=== PATIENT | male | born 1975 | race Caucasian/White ===

== ENCOUNTER 2018-04-18 09:12 | Observation (INO) ==
--- NOTE | 2018-04-18 09:31 | Emergency Department Note ---
Disposition Clinical Impression: Chest pain Qualifiers: Chest pain type: unspecified Qualified Code(s): R07.9 - Chest pain, unspecified Disposition: Admitted As Inpatient Condition: Undetermined Referrals: Letha Thorne CNP [Primary Care Provider] - Forms: ED Satisfaction Letter Time of Disposition: 11:21 Chest Pain HPI - General Chief Complaint: ED Chest Pain Stated Complaint: chest pain Time Seen by Provider: 04/18/18 09:14 Source: patient Mode of arrival: ambulatory Limitations: no limitations Vital Signs Reviewed: Yes Nursing Notes Reviewed: Yes - History of Present Illness HPI Narrative: 43-year-old male with history of hypertension, hyperlipidemia, arrives to the emergency department with left-sided chest discomfort. The patient's significant other states that over the past few days the patient is having a large amount of shortness of breath and diaphoresis upon ambulation which is new for him. The patient is complaining of left-sided chest comfort that also occurs with this ambulation. Patient was noted this morning to begin experiencing some left-sided chest discomfort with again associated shortness of breath. No nausea but the patient does look mildly diaphoretic on examination in the room. The patient is also anxious. The patient denies any hemoptysis, unilateral leg swelling, recent surgeries or immobilizations, history DVT or PE. The patient has no signs of tachycardia on examination. He patient does have a history of a stress test without any cardiac catheter. The patient's stress test was "years ago". He denies any other complaints at this time. Severity scale (1-10): 5 - Related Data Home Medications Medication Instructions Recorded Confirmed Losartan Potassium [Cozaar] 100 mg PO QPM 07/02/16 10/01/16 Lovastatin [Mevacor] 20 mg PO QPM 07/02/16 10/01/16 Previous Rx's Medication Instructions Recorded Clindamycin [Cleocin] 150 mg PO Q6HR #20 capsule 10/01/16 Allergies Allergy/AdvReac Type Severity Reaction Status Date / Time acetaminophen [From Vicodin] Allergy Hallucinati Verified 09/13/17 22:59 ng hydrocodone [From Vicodin] Allergy Hallucinati Verified 09/13/17 22:59 ng All systems ED: reviewed and negative except as stated. Constitutional: Denies: fever, chills, weakness ENT ED: Denies: dysphagia Cardiovascular: Reports: chest pain Respiratory: Reports: dyspnea. Denies: cough, sputum production Gastrointestinal: Reports: nausea. Denies: abdominal pain, vomiting, diarrhea Genitourinary: Denies: urgency, dysuria Musculoskeletal: Denies: back pain, neck pain Integumentary: Denies: rash Neurological: Reports: headache. Denies: weakness, numbness, paresthesias, confusion Chest Pain PMH - Past Medical History Medical history: Reports: hyperlipidemia, hypertension, other Surgical history: Reports: cholecystectomy, herniorrhaphy, orthopedic, other Psychiatric history: Reports: no psych history - Social History Smoking Status: Never smoker Alcohol use: Reports: none Drug use: Reports: none Physical Exam - General Limitations: no limitations General appearance: alert, in no apparent distress, anxious - Head Head exam: atraumatic, normocephalic, normal inspection - Eye Eye exam: Present: normal appearance, PERRL, EOMI - ENT ENT exam: normal exam, normal oropharynx, mucous membranes moist - Neck Neck exam: Present: normal inspection, full ROM, trachea midline - Chest Chest inspection: Present: normal inspection, symmetric chest wall rise - Respiratory Respiratory exam: Present: normal lung sounds bilaterally - Cardiovascular Cardiovascular exam: Present: regular rate, normal rhythm, normal heart sounds - Abdominal Exam Abdominal exam: Present: soft, Non-Tender. Absent: tenderness, distention, guarding, rebound, rigidity - Extremities Exam Extremities exam: Present: normal inspection, full ROM. Absent: tenderness, pedal edema - Neurological Exam Neurological exam: Present: alert, oriented X3 - Skin Skin exam: Present: warm, dry, intact, normal color Course Vital Signs Temperature 98.2 F 04/18/18 09:16 Pulse Rate 75 04/18/18 09:16 Respiratory Rate 15 04/18/18 09:16 Blood Pressure 173/103 04/18/18 09:16 O2 Sat by Pulse Oximetry 98 04/18/18 09:16 Temperature 98.2 F 04/18/18 09:20 Pulse Rate 82 04/18/18 09:41 Respiratory Rate 12 04/18/18 09:41 Blood Pressure 151/106 04/18/18 09:41 O2 Sat by Pulse Oximetry 97 04/18/18 09:41 Oxygen Delivery Oxygen Delivery Room Air Chest Pain - MDM Narrative Medical decision making narrative: Patient's workup in the emergency department and streets no acute process. The patient's troponin, EKG, chest x-ray and lab work otherwise unremarkable. Given the patient's risk factors and concerning findings for chest pain, we will admit the patient to the hospital for further workup and care. The patient was made aware and agrees to plan. No further questions or concerns are noted at this time. The patient was administered aspirin and nitroglycerin. He is currently chest pain-free. The patient agrees to plan of care. We will get the patient to the hospital this time, accepted by Dr. Rose. - Lab Data Lab results reviewed: Yes I reviewed the patient's lab results. Result diagrams: 04/18/18 10:11 04/18/18 10:11 Lab Results 04/18/18 04/18/18 Range/Units 10:11 10:11 WBC 7.8 (4.3-11.1) K/mcL RBC 5.68 H (4.19-5.50) M/mcL Hgb 15.5 (12.9-16.9) g/dL Hct 45.6 (37.5-50.1) % MCV 80.3 L (83.0-100.0) fL MCH 27.3 L (28.0-33.3) pg MCHC 34.0 (31.6-35.5) g/dL RDW 13.5 (11.5-14.5) % Plt Count 364 (140-400) K/mcL MPV 9.0 L (9.4-12.4) fL Immature Gran % 0.3 (0-4) % Seg Neutrophils % 63.2 % Lymphocytes % 26.4 % Monocytes % 6.5 % Eosinophils % 2.8 % Basophils % 0.8 % Neutrophils # 4.9 (1.6-8.9) K/mcL Lymphocytes # 2.1 (0.6-4.6) K/mcL Monocytes # 0.5 (0.0-1.3) K/mcL Eosinophils # 0.2 (0.0-0.6) K/mcL Basophils # 0.1 (0.0-0.2) K/mcL Immature Plt Fraction 1.7 (1.1-6.1) % Sodium 135 L (136-145) mEq/L Potassium 4.1 (3.5-5.1) mEq/L Chloride 106 (98-107) mEq/L Carbon Dioxide 21 L (23-29) mEq/L BUN 9 (6-20) mg/dL Creatinine 0.96 (0.70-1.30) mg/dL Est GFR ( Amer) > 60 (> 60) Est GFR (Non-Af Amer) > 60 (> 60) BUN/Creatinine Ratio 9 (6-26) Glucose 129 H (70-105) mg/dL Calculated Osmolality 280 (280-300) Calcium 9.4 (8.6-10.3) mg/dL Troponin I < 0.03 (< 0.04) ng/mL - Radiology Data Radiology results reviewed: Yes I reviewed the patient's radiology results. Chest X-Ray 04/18/18 09:18 IMPRESSION: No acute cardiopulmonary process identified. D/ / Topher Cadet MD / Topher Cadet MD Interpreting Provider: Topher Cadet MD - EKG Data EKG attestation: Yes I reviewed and interpreted this EKG. EKG results narrative: Heart rate [address] elevation or ST depression noted. Nonspecific changes noted from EKG on 06/22/2017.
[2018-04-18] MEDS ORDERED: Nitroglycerin 0.4 MG TAB.SUBL SL PRN (09:34)
[2018-04-18] MEDS ORDERED: Aspirin 325 MG TABLET PO ONE (09:34)
[2018-04-18 10:35] LABS: Basophils # 0.1 K/mcL (0.0-0.2); Basophils % 0.8 %; Eosinophils # 0.2 K/mcL (0.0-0.6); Eosinophils % 2.8 %; Hematocrit 45.6 % (37.5-50.1); Hemoglobin 15.5 g/dL (12.9-16.9); Immature Granulocytes % 0.3 % (0-4); Immature Platelets 1.7 % (1.1-6.1); Lymphocytes # 2.1 K/mcL (0.6-4.6); Lymphocytes % 26.4 %; Mean Corpuscular Hemoglobin 27.3 pg (28.0-33.3); Mean Corpuscular Volume 80.3 fL (83.0-100.0); Monocytes # 0.5 K/mcL (0.0-1.3); Monocytes % 6.5 %; Neutrophils # 4.9 K/mcL (1.6-8.9); Platelet Count 364 K/mcL (140-400); Red Blood Count 5.68 M/mcL (4.19-5.50); Red Cell Distribution Width 13.5 % (11.5-14.5); Segmented Neutrophils % 63.2 %
[2018-04-18 10:54] LABS: Troponin I < 0.03 ng/mL (< 0.04)
[2018-04-18 11:08] LABS: BUN/Creatinine Ratio 9 (6-26); Blood Urea Nitrogen 9 mg/dL (6-20); Calcium 9.4 mg/dL (8.6-10.3); Carbon Dioxide 21 mEq/L (23-29); Chloride 106 mEq/L (98-107); Glucose 129 mg/dL (70-105); Osmolality,Calculated 280 (280-300); Potassium 4.1 mEq/L (3.5-5.1); Sodium 135 mEq/L (136-145); eGFR For Non-African Americans > 60 (> 60)
[2018-04-18] MEDS ORDERED: Adenosine 90 MG/30 ML MLS IV ONE (11:28)
--- NOTE | 2018-04-18 11:30 | Emergency Department Note ---
Disposition Clinical Impression: Chest pain Qualifiers: Chest pain type: unspecified Qualified Code(s): R07.9 - Chest pain, unspecified Disposition: Admitted As Inpatient Condition: Undetermined General Adult HPI - General Chief complaint: ED Chest Pain Stated complaint: chest pain Time Seen by Provider: 04/18/18 09:14 Source: patient Mode of arrival: ambulatory Limitations: no limitations - History of Present Illness Pain Scale: 5 - Related Data Home Medications Medication Instructions Recorded Confirmed Losartan Potassium [Cozaar] 100 mg PO QPM 07/02/16 10/01/16 Lovastatin [Mevacor] 20 mg PO QPM 07/02/16 10/01/16 Previous Rx's Medication Instructions Recorded Clindamycin [Cleocin] 150 mg PO Q6HR #20 capsule 10/01/16 Allergies Allergy/AdvReac Type Severity Reaction Status Date / Time acetaminophen [From Vicodin] Allergy Hallucinati Verified 09/13/17 22:59 ng hydrocodone [From Vicodin] Allergy Hallucinati Verified 09/13/17 22:59 ng Constitutional: Denies: fever, chills, weakness ENT ED: Denies: dysphagia Cardiovascular: Reports: chest pain Respiratory: Reports: dyspnea. Denies: cough, sputum production Gastrointestinal: Reports: nausea. Denies: abdominal pain, vomiting, diarrhea Genitourinary: Denies: urgency, dysuria Musculoskeletal: Denies: back pain, neck pain Integumentary: Denies: rash Neurological: Reports: headache. Denies: weakness, numbness, paresthesias, confusion Past Medical History - Past Medical History Medical history: Reports: hyperlipidemia, hypertension, other Surgical history: Reports: cholecystectomy, herniorrhaphy, orthopedic, other Psychiatric history: Reports: no psych history - Social History Smoking Status: Never smoker Smokeless Tobacco Status: No Alcohol use: Reports: none Drug use: Reports: none Physical Exam - General Limitations: no limitations General appearance: alert, in no apparent distress, anxious Course Vital Signs Temperature 98.2 F 04/18/18 09:16 Pulse Rate 75 04/18/18 09:16 Respiratory Rate 15 04/18/18 09:16 Blood Pressure 173/103 04/18/18 09:16 O2 Sat by Pulse Oximetry 98 04/18/18 09:16 Temperature 98.2 F 04/18/18 09:20 Pulse Rate 82 04/18/18 09:41 Respiratory Rate 12 04/18/18 09:41 Blood Pressure 151/106 04/18/18 09:41 O2 Sat by Pulse Oximetry 97 04/18/18 09:41 Oxygen Delivery Oxygen Delivery Room Air Medical Decision Making - Lab Data Result diagrams: 04/18/18 10:11 04/18/18 10:11 Lab Results 04/18/18 04/18/18 Range/Units 10:11 10:11 WBC 7.8 (4.3-11.1) K/mcL RBC 5.68 H (4.19-5.50) M/mcL Hgb 15.5 (12.9-16.9) g/dL Hct 45.6 (37.5-50.1) % MCV 80.3 L (83.0-100.0) fL MCH 27.3 L (28.0-33.3) pg MCHC 34.0 (31.6-35.5) g/dL RDW 13.5 (11.5-14.5) % Plt Count 364 (140-400) K/mcL MPV 9.0 L (9.4-12.4) fL Immature Gran % 0.3 (0-4) % Seg Neutrophils % 63.2 % Lymphocytes % 26.4 % Monocytes % 6.5 % Eosinophils % 2.8 % Basophils % 0.8 % Neutrophils # 4.9 (1.6-8.9) K/mcL Lymphocytes # 2.1 (0.6-4.6) K/mcL Monocytes # 0.5 (0.0-1.3) K/mcL Eosinophils # 0.2 (0.0-0.6) K/mcL Basophils # 0.1 (0.0-0.2) K/mcL Immature Plt Fraction 1.7 (1.1-6.1) % Sodium 135 L (136-145) mEq/L Potassium 4.1 (3.5-5.1) mEq/L Chloride 106 (98-107) mEq/L Carbon Dioxide 21 L (23-29) mEq/L BUN 9 (6-20) mg/dL Creatinine 0.96 (0.70-1.30) mg/dL Est GFR ( Amer) > 60 (> 60) Est GFR (Non-Af Amer) > 60 (> 60) BUN/Creatinine Ratio 9 (6-26) Glucose 129 H (70-105) mg/dL Calculated Osmolality 280 (280-300) Calcium 9.4 (8.6-10.3) mg/dL Troponin I < 0.03 (< 0.04) ng/mL Attestation Statement - Attestation Attestation: I examined this patient and my medical decision-making was reviewed with the Resident Physician. I agree with the documented findings, disposition and treatment plan as described except to the extent set forth below. 43 year old male who has a history of HTN as a teenager and was managed by beta blockers but recently taken off all of his medicatiions secondary to a GI bleed recently/ [place] states that he is having chest pain with exertional dyspnea and dipahoresis and states that he hunts and yestserday had to sit down twice and was extremely diaphoretic upon walking back to the house. The nitro has helped his pain. Meme has mutliple risk facotrs for aCS. negative troponin and non-ischemic EKG. But due to elevated heart score and clinical picture we will admit to medicine
[2018-04-18] MEDS ORDERED: Isovue-370 500 ML INFUS..BTL IV ONE (12:54)
[2018-04-18] MEDS ORDERED: Naloxone 0.4 MG/ML INJ IVP PRN (12:58)
[2018-04-18] MEDS ORDERED: Acetaminophen 325 MG TABLET PO PRN (12:58)
[2018-04-18] MEDS ORDERED: *HR* Heparin 5,000 UNIT/ML VIAL IVP PRN ×2 (13:03)
[2018-04-18] MEDS ORDERED: *HR* Heparin 5,000 UNIT/ML VIAL IVP ONE (13:03)
[2018-04-18] MEDS ORDERED: Pantoprazole 40 MG VIAL IVP ONE (13:23)
--- NOTE | 2018-04-18 13:24 | Internal Med History&Physical ---
<Eliel Delgadillo - Last Filed: 04/18/18 14:07> Date of Encounter: 04/18/18 Time of Encounter: 12:15 Internal Medicine - H&P: HPI Chief complaint: CP Admitted From: Emergency Dept Plans for Post Hospital Care: Home History of present illness: Mr. Bennett is a 43 year old male w?PMH of HTN, HLD, and essential tremor presents w/CC of CP, SOB, and diaphoresis for the past 24 hours. Pt. states that he had CP for the past week which worsened in severity yesterday. Describes as severe pressure under left breast w/radiation to left neck and back. Pt. states hes had intermittent CP w/episodes of tachycardia and bradycardia since his 20s w/no dx. Hx of GI bleed last year d/t chronic NSAID use from left shoulder pain following surgeries x4 and plates in his neck. Pts. medications stopped last fall and were never re-started. Denies N/V. Denies recent cardiac w/u. Patient denies recent illness, fever, chills, nausea, vomiting, changes in vision, headache, abdominal pain, cough, chest congestion, history of GERD, diarrhea, constipation, dizziness, lightheadedness, numbness, tingling, pre-syncope, or syncope. Past Med Surg Social Fam HX - Past Medical History Source: patient, old records reviewed, obtained from family Medical history: hyperlipidemia, hypertension, other (Essential tremor) Additional medical history: Essential Tremor Psychiatric history: no psych history - Past Surgical History Surgical History: cholecystectomy, herniorrhaphy, orthopedic, other (Left shoulder surgery x4, Neck plates) Additional surgical history: left shoulder surgery, left inguinal hernia repair as a child, recurrent left inguinal hernia repair, right inguinal hernia, bone graft from left hip - Social History Smoking Status: Never smoker Smokeless Tobacco Status: No Alcohol use: none Drug use: none Occupational status: employed Current living situation: Home, With Family Activity Level: Independent ambulation, Very active Recent Out of Country Travel Within the Last 8 Weeks: No Exposure or Possible Exposure to Illness During Travel: No - Family History Father Race: Family Member Ethnicity: Non- Living Status: Age at : 20 Cause of : Accident Mother History Unknown: Yes Race: Family Member Ethnicity: Non- Living Status: Still Living Brother History Unknown: Yes Race: Family Member Ethnicity: Non- Living Status: Still Living Internal Medicine - H&P: Meds Ibuprofen [Motrin] 200 mg PO DAILY PRN 04/18/18 [History] 3 Allergy/AdvReac Type Severity Reaction Status Date / Time acetaminophen [From Vicodin] Allergy Hallucinati Verified 04/18/18 11:41 ng hydrocodone [From Vicodin] Allergy Hallucinati Verified 04/18/18 11:41 ng All Systems PM: A 10-system review of systems was performed and is negative for pertinent findings except as documented above in the HPI. - Constitutional Constitutional: no chills, no fever(s), no night sweats - EENT Eyes: no change in vision, no discharge, no pain, no photophobia Ears: no ear discharge, no ear pain, no tinnitus Nose, mouth and throat: no dysphagia, no nasal discharge, no neck pain, no sore throat - Breasts Breasts: as per HPI - Cardiovascular Cardiovascular ROS IM: as per HPI, chest pain, diaphoresis, dyspnea, dyspnea on exertion, no lightheadedness, no palpitations, no syncope - Respiratory Respiratory: as per HPI, dyspnea, dyspnea on exertion, no cough, no wheezing, no excessive phlegm production - Gastrointestinal Gastrointestinal: no abdominal pain, no diarrhea, no hematemesis, no hematochezia, no melena, no nausea, no vomiting - Genitourinary Genitourinary ROS male: as per HPI - Musculoskeletal Musculoskeletal ROS IM: as per HPI, other (Chronic left shoulder pain from surgeries x4 and neck pain d/t plate placement), no numbness, no tingling - Integumentary Integumentary IM: no rash, no unusual bruising - Neurological Neurological ROS: no confusion, no convulsions, no focal weakness, no numbness, no tingling, no tremor(s) - Psychiatric Psychiatric: as per HPI - Endocrine Endocrine IM: as per HPI - Hematologic/Lymphatic Hematologic/Lymphatic: no easy bruising - Allergic/Immunologic Allergic/Immunologic: as per HPI - Constitutional Vitals: Temp Pulse Resp BP Pulse Ox 97.5 F L 77 19 153/104 98 04/18/18 12:47 04/18/18 12:47 04/18/18 12:47 04/18/18 12:47 04/18/18 12:47 General appearance: Present: cooperative, A&O X 3, pleasant, obese, severe distress (CP, SOB), answers questions appropriately Exam: Pt. examined at bedside. Pt. SOB, diaphoretic, and reports ongoing chest pressure in left chest w/radiation to left neck and back. States CP present for approx. 1 week and severely worsened yesterday. Denies recent cardiac w/u. Lungs clear on auscultation. HR RRR on exam. Pt. visibly uncomfortable and anxious on exam. Cardiology consulted. Will start heparin drip. - Head Head exam: Present: atraumatic, normocephalic - Eye Eye exam: Present: PERRL, conjuntiva pink, sclera anicteric Pupils: Present: PERRL - ENT ENT exam: Present: normal exam - Neck Neck exam general surgery: Present: normal inspection, supple, trachea midline. Absent: lymphadenopathy - Respiratory Respiratory exam: Present: CTAB. Absent: accessory muscle use, rales, rhonchi, wheezes - Cardiovascular Cardiovascular exam: Present: RRR, +S1, +S2. Absent: diastolic murmur, gallop, rubs, systolic murmur - GI/Abdominal GI/Abdominal exam: Present: normal bowel sounds, soft, no peritoneal signs. Absent: distended, tenderness - Rectal Rectal exam: Present: deferred - Additional comments: exam deferred. - Extremities Exam Extremities exam: Present: warm, radial pulses palpable and symmetrical. Absent : calf tenderness, cyanotic, pedal edema - Back Exam Back exam: Present: normal inspection - Neurological Exam Neurological exam: Present: CN II-XII intact, oriented X3, no focal deficits. Absent: pronater drift, facial droop, speech deficit - Psychiatric Psychiatric exam: Present: anxious - Skin Skin exam: Present: diaphoretic, dry, intact Internal Med - H&P Results - Labs CBC & Chem 7: 04/18/18 10:11 04/18/18 10:11 - EKG Data EKG shows normal: sinus rhythm - EKG Data Prior EKG available for review: yes EKG comments: 04/18/18 13:29 EKG dated 06/22/17 shows sinus rhythm with nonspecific T-wave abnormality. EKG dated 04/18/18 shows sinus rhythm with normal P axis and the rate of 50-99. - Diagnostic Studies Chest x-ray Additional comments: Impressions Chest X-Ray 04/18/18 09:18 IMPRESSION: No acute cardiopulmonary process identified. D/ / Topher Cadet MD / Topher Cadet MD Interpreting Provider: Topher Cadet MD - Assessment and plan (1) Chest pain Current Visit: Yes Status: Acute Assessment and plan: Acute CP for the past week that pt. states has worsened over the past day. Describes as severe pressure under left breast w/radiation to left neck and back. Pt. states hes had intermittent CP w/episodes of tachycardia and bradycardia since his 20s w/no dx. Denies recent cardiac w/u. Stat CTA ordered to r/o PE or dissection. Cardiology consult ordered and discussed w/Dr. Youssef w/recommendation to start low-dose heparin drip d/t sx. Cardiology also recommends nitro drip d/t nitro improving sx. I appreciate the Cardiology consult and recommendations as always. 80 mg Lipitor now. Aspirin in ED. Initial troponin <0.03. Will trend. Echocardiogram ordered. Will let Cardiology decide about possible stress testing. Pt. discussed w/Dr. Rose who agrees w/ plan of care. Pt. is high risk for cardiac event and further morbidity d/t current sx of CP/SOB/diaphoresis, hx of CP and heart arrhythmias since age 19, no recent cardiac w/u, concern for possible PE or dissection; and risk factors of HTN and HLD w/o medications since last fall. Observation. (2) SOB (shortness of breath) Current Visit: Yes Status: Acute Assessment and plan: Acute SOB w/CP sx. Pt. also diaphoretic. Denies home O2 use. Supplemental O2 w/ titration and SpO2 monitoring. Falls/safety precautions and up with assist only. Concern for possible PE or dissection. CTA ordered stat. Awaiting results. (3) HTN (hypertension) Current Visit: Yes Status: Chronic Assessment and plan: Hx of chronic HTN. Monitor pt. and VS. BP 153/104 on exam. Hydralazine IVP 5 mg once. Will add IVP hydralazine w/parameters. (4) HLD (hyperlipidemia) Current Visit: Yes Status: Chronic Assessment and plan: Hx of chronic HLD. Lipid panel in a.m. labs. 80 mg Lipitor now. Will add Lipitor daily if warranted by lipid panel. (5) Essential tremor Current Visit: Yes Status: Chronic Assessment and plan: Hx of essential tremors. Pt. reports previously taking topamax and wellbutrin. States that medications were stopped in the fall. Monitor closely and will resume if warranted. (6) DVT prophylaxis Current Visit: Yes Status: Acute Assessment and plan: Pt. started on heparin drip d/t current CP. Monitor pt. for signs of bleeding d/ t hx of previous GI bleed. (7) Chronic pain in left shoulder Current Visit: Yes Status: Chronic Assessment and plan: Hx of chronic left shoulder w/surgeries x4. Pt. was taking chronic NSAIDS d/t pain and developed a GI bleed last year. Instructed pt. to avoid NSAIDS and use Tylenol. Pt. states that he does not want pain medications. We will start w/ Tylenol. - Time Spent With Patient Total time spent is greater than 50% in coordination of care (as documented) at patient's floor/unit and/or counseling patient: Greater than 35 minutes <Vandana Rose - Last Filed: 04/18/18 16:34> Date of Encounter: 04/18/18 Internal Medicine - H&P: HPI History of present illness: Mr. Bennett is a 43 year old male All Systems PM: A 10-system review of systems was performed and is negative for pertinent findings except as documented above in the HPI. - Constitutional Vitals: Temp Pulse Resp BP Pulse Ox 97.6 F 74 18 143/97 97 04/18/18 15:41 04/18/18 15:41 04/18/18 15:41 04/18/18 15:41 04/18/18 15:41 Internal Med - H&P Results - Labs CBC & Chem 7: 04/18/18 13:42 04/18/18 10:11 Labs: Short CBC 04/18/18 Range/Units 13:42 WBC 9.8 (4.3-11.1) K/mcL Hgb 16.2 (12.9-16.9) g/dL Hct 46.1 (37.5-50.1) % Plt Count 339 (140-400) K/mcL Cardiac Enzymes 04/18/18 Range/Units 14:33 Troponin I < 0.03 (< 0.04) ng/mL - Impressions ITS Impressions Chest CTA 04/18/18 12:54 IMPRESSION: No evidence of pulmonary embolism. Mild patchy ground-glass within the left lower lobe. Findings may be related to air trapping, edema, or atelectasis. Pulmonary nodules which measure up to 8 mm in the right lower lobe. Recommend follow-up CT of the chest in 3-6 months. D/ / Lia Buchanan MD / Lia Buchanan MD Interpreting Provider: Lia Buchanan MD - Assessment and plan (1) Chest pain Current Visit: Yes Status: Acute Qualifiers: Chest pain type: precordial pain Qualified Code(s): R07.2 - Precordial pain (2) HTN (hypertension) Current Visit: Yes Status: Chronic Qualifiers: Hypertension type: essential hypertension Qualified Code(s): I10 - Essential (primary) hypertension (3) HLD (hyperlipidemia) Current Visit: Yes Status: Chronic Qualifiers: Hyperlipidemia type: pure hypercholesterolemia Qualified Code(s): E78.00 - Pure hypercholesterolemia, unspecified; E78.0 - Pure hypercholesterolemia (4) Essential tremor Current Visit: Yes Status: Chronic (5) DVT prophylaxis Current Visit: Yes Status: Acute (6) SOB (shortness of breath) Current Visit: Yes Status: Acute (7) Chronic pain in left shoulder Current Visit: Yes Status: Chronic - Time Spent With Patient Total time spent is greater than 50% in coordination of care (as documented) at patient's floor/unit and/or counseling patient: - Attending Attestation I have seen and examined this patient independently. I have discussed with LEAD [employer]RO[employer] DEVELOPER Mr Delgadillo regarding the management plan. Agree with the documentation.
--- NOTE | 2018-04-18 13:41 | Cardiology Consult Note ---
Date of Encounter: 04/18/18 Time of Encounter: 13:20 Assessment and Plan (1) Chest pain Current Visit: Yes Status: Acute Patient presents with constant chest pain since Wednesday--left sided with radiation to left neck. No acute ECG changes noted. Initial troponin negative. Reports improvement in symptoms with NTG tabs. Obtain troponin now. Chest CTA pending. On heparin gtt, will start NTG gtt, titrate to keep chest pain free. Echo ordered. If troponin remains negative, recommend nuclear stress in AM. Keep NPO after MN. Qualifiers: Chest pain type: precordial pain Qualified Code(s): R07.2 - Precordial pain Discussion w patient/family: The assessment and plan as outlined above was discussed with the patient and/or family members who expressed understanding and agreement. All questions were answered. Thank you for involving us in the care of your patient. Please call with any questions. The patient will be discussed and reviewed with Dr. Youssef; changes to be made accordingly. History of Present Illness Consult date: 04/18/18 Requesting physician: Eliel Delgadillo Consult reason: Chest pain Chief complaint: Chest pain History of present illness: Mr. Bennett is a 43 year old male with PMHx significant for HTN, HLD, significant anxiety, tremors, and GI bleed () secondary to gastritis who presented to the ED with complaints of chest that initially started 1 week ago. He reports intermittent chest discomfort (left-sided chest heaviness, pressure) with radiation to left neck which he also has noted to be swollen. Discomfort worsens with exertion and improves with rest. He reports symptoms gradually worsened throughout the week, on Wednesday he reports unrelenting constant 8/10 chest pressure and heaviness with radiation to left neck. Associated symptoms include shortness of breath, fatigue, and diaphoresis. He notes he was walking in the [place] yesterday and had to stop and rest several times, which is atypical for him. Of note, reports increased stress at work since starting a new position 2 months ago. Initial troponin negative. No ischemic ECG changes noted. Upon exam, he continues to endorse chest discomfort, temporarily improved with SL ntg tab in ED. Of note, also observed several insect bites on torso, arms, and back from reported "chigger bites." Reports negative stress test "many years ago." Prior CV testing: TTE 03/05/14: LVEF 65%, mildly dilated RV with normal function, mild TR, est RVSP 30 mmHg, normal wall motion Past Med Surg Social Fam HX - Past Medical History Attestation: Yes The following information was validated with the patient. Source: patient Medical history: hyperlipidemia, hypertension, other (Essential tremor) Additional medical history: Essential Tremor Psychiatric history: no psych history, anxiety - Past Surgical History Surgical History: cholecystectomy, herniorrhaphy, orthopedic, other (Left shoulder surgery x4, Neck plates) Additional surgical history: left shoulder surgery, left inguinal hernia repair as a child, recurrent left inguinal hernia repair, right inguinal hernia, bone graft from left hip - Social History Smoking Status: Never smoker Smokeless Tobacco Status: No Alcohol use: none Drug use: none - Family History Father Race: Family Member Ethnicity: Non- Living Status: Age at : 20 Cause of : Accident Mother History Unknown: Yes Race: Family Member Ethnicity: Non- Living Status: Still Living Brother History Unknown: Yes Race: Family Member Ethnicity: Non- Living Status: Still Living Medications and Allergies Ibuprofen [Motrin] 200 mg PO DAILY PRN 04/18/18 [History] 3 Allergy/AdvReac Type Severity Reaction Status Date / Time acetaminophen [From Vicodin] Allergy Hallucinati Verified 04/18/18 11:41 ng hydrocodone [From Vicodin] Allergy Hallucinati Verified 04/18/18 11:41 ng All Systems Review: The remainder of the systems were reviewed and are negative - Cardiovascular Cardiovascular: as per HPI Physical Examination Vital Signs, Last 4 Hours Temp Pulse Resp BP Pulse Ox 04/18/18 12:47 97.5 F L 77 19 153/104 98 04/18/18 11:42 75 16 156/103 99 General: Conversant, Other (anxiety noted) HEENT: Atraumatic, Normocephaly Cardiac: Reg Rate and Rhythm, Normal S1 and S2 Lungs: Normal Breath Sounds Neuro: Alert and responsive Abdomen: Soft Skin: Other (multiple insect bites noted on torso, back, and arms) Extremities: No Edema, Normal Pulses Results 04/18/18 13:42 04/18/18 10:11 Active Medications Acetaminophen (Tylenol) 650 mg PO Q6HR PRN PRN Reason: Mild Pain/Fever Stop: 10/18/18 12:59 Heparin Sodium (Porcine) (Heparin) 4,000 unit IVP Q6HR PRN PRN Reason: SEE COMMENTS Stop: 10/18/18 13:04 Heparin Sodium (Porcine) (Heparin) 2,000 unit IVP Q6H PRN PRN Reason: SEE COMMENTS Stop: 10/18/18 13:04 Heparin Sodium/Dextrose (Heparin 25,000 Unit/500 Ml D5w) 25,000 unit in 500 mls @ 27.72 mls/hr IVC .Q18H3M DEVON; 12 UNIT/KG/HR PRN Reason: Protocol Stop: 10/18/18 13:16 Nitroglycerin (Nitroglycerin Premix 25 Mg/250 Ml) 25 mg in 250 mls @ 3 mls/hr IVC .Q24H DEVON; 5 MCG/MIN PRN Reason: Protocol Stop: 10/18/18 14:01 Naloxone HCl (Narcan) 0.4 mg IVP Q2MIN PRN PRN Reason: SEE COMMENTS Stop: 10/18/18 12:59 Nitroglycerin (Nitroglycerin) 0.4 mg SL Q5MIN PRN PRN Reason: Chest Pain Stop: 10/18/18 09:35 Last Admin: 04/18/18 09:40 Dose: 0.4 mg - Imaging and Cardiology Echo: report reviewed - EKG Interpretation EKG results cardiology: personally reviewed Consult Discharge Plan - Plan Referrals: Letha Thorne, [employer] [Primary Care Provider] -
[2018-04-18] MEDS ORDERED: Nitroglycerin 25 MG/250 ML INFUS..BTL IVC SCH (14:00)
[2018-04-18 14:09] LABS: Hematocrit 46.1 % (37.5-50.1); Hemoglobin 16.2 g/dL (12.9-16.9); Mean Corpuscular HGB Conc 35.1 g/dL (31.6-35.5); Mean Corpuscular Hemoglobin 27.9 pg (28.0-33.3); Mean Corpuscular Volume 79.5 fL (83.0-100.0); Platelet Count 339 K/mcL (140-400); Red Cell Distribution Width 13.4 % (11.5-14.5)
[2018-04-18 14:10] LABS: Heparin anti-factor XA UFH 0.04 IU/mL (0.30-0.70)
[2018-04-18 14:11] LABS: Prothrombin Time 11.7 Seconds (9.4-12.1)
[2018-04-18] MEDS: Heparin 25,000 UNIT/500 ML D5W 25,000 UNIT/500 ML BAG IVC SCH (14:34)
[2018-04-18] MEDS ORDERED: *HR* LORazepam 2 MG/ML VIAL IVP ONE (16:08)
[2018-04-18] MEDS ORDERED: Perflutren Lipid Microsphere 1.3 ML in 0.9 % Sodium Chloride 8.7 ML IVP ONE (22:17)
[2018-04-19 04:55] LABS: Basophils # 0.1 K/mcL (0.0-0.2); Basophils % 0.7 %; Eosinophils # 0.4 K/mcL (0.0-0.6); Eosinophils % 4.3 %; Hematocrit 44.9 % (37.5-50.1); Hemoglobin 15.7 g/dL (12.9-16.9); Immature Granulocytes % 0.2 % (0-4); Lymphocytes # 2.7 K/mcL (0.6-4.6); Mean Corpuscular Volume 80.2 fL (83.0-100.0); Mean Platelet Volume 9.3 fL (9.4-12.4); Monocytes # 0.7 K/mcL (0.0-1.3); Monocytes % 8.1 %; Neutrophils # 5.1 K/mcL (1.6-8.9); Platelet Count 331 K/mcL (140-400); Red Cell Distribution Width 13.2 % (11.5-14.5); Segmented Neutrophils % 56.7 %
[2018-04-19 05:17] LABS: Alanine Aminotransferase 24 Units/L (7-52); Albumin 3.8 g/dL (3.5-5.7); Albumin/Globulin Ratio 1.5 (1.1-2.2); Alkaline Phosphatase 45 Units/L (34-104); Aspartate Amino Transferase 17 Units/L (13-39); BUN/Creatinine Ratio 13 (6-26); Bilirubin,Total 0.6 mg/dL (0.3-1.0); Blood Urea Nitrogen 12 mg/dL (6-20); Calcium 8.9 mg/dL (8.6-10.3); Carbon Dioxide 23 mEq/L (23-29); Chloride 106 mEq/L (98-107); Chol/HDL Ratio 5.3 (0-4.9); Cholesterol 159 mg/dL (< 200); Globulin 2.5 g/dL (2.4-3.5); Glucose 120 mg/dL (70-105); HDL Cholesterol 30 mg/dL (40-59); LDL Cholesterol,Calculated 96 mg/dL (0-99); Magnesium 2.2 mg/dL (1.6-2.6); Osmolality,Calculated 285 (280-300); Potassium 3.9 mEq/L (3.5-5.1); Sodium 137 mEq/L (136-145); Total Protein 6.3 g/dL (6.4-8.9); Triglycerides 164 mg/dL (< 150); eGFR For Non-African Americans > 60 (> 60)
[2018-04-19 07:22] LABS: Estimated Average Glucose 126 mg/dl
[2018-04-19] MEDS: Heparin 25,000 UNIT/500 ML D5W 25,000 UNIT/500 ML BAG IVC SCH (08:36)
--- NOTE | 2018-04-19 08:54 | Electrocardiograph Report ---
[place] [email or web address] Test Date: 2018-04-18 Pat Name: Christiano Bennett Department: Room: 3B46 Gender: M Cell Stripper Final: : 1975 Requested By: Zarina Sherman Order Number: [id number] Reading MD: Rory Bronson Measurements Intervals Leary Rate: 80 P: -10 IN: 152 QRS: 31 QRSD: 99 T: 54 QT: 365 QTc: 421 Interpretive Statements Sinus rhythm wnl Electronically Signed On 04-19-2018 8:52:23 EDT by Rory Bronson
--- NOTE | 2018-04-19 09:20 | Event Note ---
Date of Encounter: 04/19/18 Time of Encounter: 09:18 - Cardiology Event Note Mr. Bennett continues to have 4/10 left sided chest pain this mornig. NTG gtt turned off by nursing staff at midnight for possible testing. I discussed POC with Dr. Youssef. Due to persistent chest pain concerning for unstable angina he is recommended to have LHC for further evaluation. LHC R/B/A was reviewed with patient and . He agrees to proceed. Vital Signs Temp Pulse Resp BP Pulse Ox 04/19/18 07:15 97.9 F 62 15 160/94 96 04/19/18 03:48 97.8 F 77 15 142/90 97 04/18/18 23:40 98.4 F 97 14 149/89 96 04/18/18 19:10 97.9 F 106 14 164/102 97 04/18/18 15:41 97.6 F 74 18 143/97 97 04/18/18 12:47 97.5 F L 77 19 153/104 98 04/18/18 11:42 75 16 156/103 99 04/18/18 09:41 82 12 151/106 97 Intake and Output 04/18/18 04/19/18 04/19/18 23:59 07:59 15:59 Intake Total 24 / 24 500 / 500 Balance 24 / 24 500 / 500 Intake: IV Fluids 24 / 24 500 / 500 Heparin 25,000 UNIT/500 ML D5W 500 / 500 25,000 unit In 500 ml @ 12 UNIT /KG/HR 27.72 mls/hr IVC .Q18H3M DEVON Rx#:[id number] Nitroglycerin Premix 25 MG/250 24 / 24 ML 25 mg In 250 ml @ 5 MCG/MIN 3 mls/hr IVC .Q24H DEVON Rx#: [id number] Other: Weight 117.1 kg Patient Weight 04/19/18 23:59 Weight 117.1 kg
--- NOTE | 2018-04-19 09:24 | Pre-Sedation Evaluation ---
Pre-sedation evaluation - Pre-sedation checklist Date of procedure: 04/19/18 Procedure: [facility] [place] Recent Vitals: Last Vital Signs Temp 97.9 F 04/19/18 07:15 Pulse 62 04/19/18 07:15 Resp 15 04/19/18 07:15 BP 160/94 04/19/18 07:15 Pulse Ox 96 04/19/18 07:15 H&P (including ROS) documented in medical record: Yes Previous reaction to sedatives/anesthetics: No Dietary Status: NPO after Midnight Airway Assessment: Patient can open mouth completely, TMJ function normal ASA Classification *see protocol: CLASS II-Mild systemic disease Plan of Care: Pt appropriate candidate for procedure/moderate/conscious sedation , Risks/benefits of procedure/sedation discussed w/ patient/family Cardiac Registry (Cardio Only) - Functional Capacity Functional Capacity: >=4 METS with symptoms - Clincal Frailty Scale Clinical Frailty Scale: Managing Well
[2018-04-19] MEDS ORDERED: Verapamil 5 MG/2 ML VIAL ONE (10:09)
[2018-04-19] MEDS ORDERED: ISOVUE-370 200 ML INFUS..BTL IV ONE ×2 (10:09→11:25)
[2018-04-19] MEDS ORDERED: Heparin 1,000 UNITS/500 mL 500 ML ONE (10:09)
[2018-04-19] MEDS ORDERED: *HR* Heparin 10,000 UNIT/10 ML VIAL ONE (10:09)
[2018-04-19] MEDS ORDERED: 0.9 % Sodium Chloride 1,000 ML ONE ×2 (10:09→10:50)
[2018-04-19] MEDS ORDERED: Nitroglycerin 1,000 MCG/10 ML VIAL IV ONE (10:10)
[2018-04-19] MEDS ORDERED: *HR* Midazolam HCl 5 MG/5 ML VIAL IVP ONE (10:50)
[2018-04-19] MEDS ORDERED: *HR* FentaNYL (PF) 100 MCG/2 ML VIAL ONE (10:50)
[2018-04-19] MEDS ORDERED: Tirofiban 12.5 MG/250ML 12.5 MG/250 ML BAG ONE (11:29)
[2018-04-19] MEDS ORDERED: *HR* Ticagrelor 90 MG TABLET ONE (11:37)
[2018-04-19] MEDS ORDERED: Tirofiban 12.5 MG/250ML 12.5 MG/250 ML BAG IVC SCH (11:45)
--- NOTE | 2018-04-19 12:41 | Invasive Diagnostic Lab Proc ---
Name: Christiano Bennett Date of Study: 04/19/2018 Date: 1975 Ht: 72.0in Medical Record#: [id number] Age: 43 Wt: 257.94lb Gender: Male BSA: 2.37 Order #: [id number] BMI: 34.94 Physicians Procedure Physician: Parth Andrews MD, [facility] Referring MD: Referring MD: Staff Name Position Time In Ana Mcdermott RN Monitor 11:00 AM Navid Garcia RN Car Attendant 11:00 AM Kaur Barragan RT (R) Scrub 11:00 AM Indications Indication Unstable Angina Procedures Performed Procedure L HRT ARTERY/VENTRICLE ANGIO IV Doppler BLD Flow 1st Vessel PRQ CARD DIANA STENT W/ANGIO 1 VSL Pre-Procedure Checklist Informed consent is complete signed and on chart. H&P is on chart. ID band is on and ID verified with patient. Patient NPO for procedure The procedure was described for the patient and questions were answered. ECG is on chart. Plan of Care Patient will tolerate the procedure without complications. Adequate level of comfort will be maintained. Hemodynamics will remain stable Patient will recover from procedure without complications. Respiratory function will be maintained. Cardiac rhythm will remain stable. Patient temperature will be maintained. Patient and/or family have verbalized understanding of the procedure. Patient Education Chief Complaint/Reason for Test: Cardiac Cath Developmental Category: Adult (18-64 years) Developmentally Appropriate for Age: Yes Learning Barriers: None Education Needs: Procedure Education Method: Verbal Information Taught: Cardiac Cath Educational Evaluation: Able to repeat information Intravenous Access Time IV Size Location DC'd Fluid/Drip Rate Units RN 20g 1 1/4" Patent On Arrival Lt Arm 20g 1 1/4" Patent On Arrival Lt Hand Allergies acetaminophen hydrocodone VICODIN ACETA/HYDROCODONE (500MG/5MG) Vital Signs Time BP (mmHg) HR (bpm) O2 Sat. RR (bpm) LOC / % 5 = Fully awake and oriented or at pre-proc level 11:01 AM / % 5 = Fully awake and oriented or at pre-proc level 11:01 AM / % 4 = Oriented but drowsy 11:16 AM / % 3 = Answers simple questions/follows commands 10:56 AM 192 / 101 83 97 % 20 11:01 AM 182 / 94 89 96 % 26 11:05 AM 167 / 96 93 97 % 16 11:10 AM 166 / 99 103 94 % 18 11:16 AM 161 / 82 97 96 % 21 11:20 AM 168 / 91 92 94 % 29 11:26 AM 171 / 67 100 96 % 18 11:30 AM 168 / 88 94 95 % 15 11:36 AM 183 / 104 85 96 % 13 11:45 AM 177 / 108 82 95 % 12 5 = Fully awake and oriented or at pre-proc level 12:00 PM 194 / 108 85 95 % 13 5 = Fully awake and oriented or at pre-proc level 12:30 PM 151 / 105 90 96 % 16 5 = Fully awake and oriented or at pre-proc level Procedural Medications Time Medication Dose Units Method Given By 11:00 AM Oxygen 2 L/min nasal cannula Navid Garcia RN 11:01 AM Versed 2 mg Intravenous Navid Garcia RN 11:01 AM Fentanyl 50 mcg Intravenous Navid Garcia RN 11:07 AM Lidocaine 2% 0.5 ml Subcutaneous Parth Andrews MD, FACC 11:09 AM Heparin 2000 units Nitroglycerin 200 mcg Verapamil 2.5 mg Intraarterial Parth Andrews MD, FACC 11:22 AM Nitroglycerin 200 mcg Intracoronary Parth Andrews MD 11:23 AM Heparin 2500 units Intravenous Navid Garcia RN 11:25 AM 90mg Adenosine in 90 ml 0.9 NS 982 ml/hr Intravenous Navid Garcia RN 11:36 AM Aggrastat Bolus: 58 ml Intravenous Navid Garcia RN 11:31 AM Aggrastat 12.5mg/250ml 21 ml/hr Intravenous Navid Garcia RN 11:37 AM Brilinta 180 mg Orally Navid Garcia RN ASA Classification: CLASS II- Mild systemic disease (i.e. well-controlled diabetes, hypertension, asthma, cigarette smoking) Sea Score Preprocedure Postprocedure Activity 2- Moves 4 extremities sustained head lift Activity 2- Moves 4 extremities sustained head lift Circulation 2- SBP +/= 20 points of pre-anesthetic level Circulation 2- SBP +/= 20 points of pre-anesthetic level Consciousness 2- Awake and alert oriented x 3 Consciousness 2- Awake and alert oriented x 3 O2 Saturation 2- Able to maintain O2 satruation of 92% on room air O2 Saturation 2- Able to maintain O2 satruation of 92% on room air Respiratory 2- Able to deep breathe and cough well Respiratory 2- Able to deep breathe and cough well Total Score 10 Total Score 10 Contrast Agent: Isovue Diagnostic Contrast: 135 ml Total Contrast: 135 ml Fluoro Dose: 6020 mGy Activated Clotting Time Time Seconds to Clot 11:23 AM 199 Procedure Log Time Note Enter By 10:51 AM 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 10:51 AM Procedure start 10:51 10:51 AM CathStat 10:55 AM Vitals capture started with the following parameters, Patient=Adult, Interval=5 min, Initial Gpdqtujx=650 mmHg, Deflation Rate=5 mmHg, Cuff placed on Right Arm 10:56 AM HR=83 bpm, KWPY=797/101 mmhg, SpO2=97.0 %, Resp=20 B/min 11:00 AM Ana Mcdermott RN Position: Monitor Time in: :[facility] 11: AM Navid Garcia RN Position: Car Attendant Time in: : 11: AM Kaur Barragan RT (R) Position: Scrub Time in: : 11:00 AM Patient charges- Angio tray pack, Navilyst 3mm J, Pulse Oximetry and ACIST tubing and transducer : AM Hair removed from procedure site in procedure lab using clippers. Right wrist & Right groin prepped with Chloraprep by Ana Mcdermott RN, then patient was draped. Skin intact. Time: 11: Oxygen on at 2 L/min per nasal cannula by Navid Garcia RN : AM HR=89 bpm, XJJE=173/94 mmhg, SpO2=96.0 %, Resp=26 B/min, EtCO2=34 mmHg, Comment=nsr : AM Time: : Versed 2 mg Intravenous Given by Navid Garcia RN AM Time: : Fentanyl 50 mcg Intravenous Given by Navid Garcia RN [facility] : AM Time: : Patient comfortable and pain free: Yes Time: :LOC: 5 = Fully awake and oriented or at pre-proc level [facility]: Clinical Presentation: Unstable angina [facility] :02 AM Recorded ECG: HR=89 Condition=Condition 1 11:03 AM Pressure channel 1 zeroed. 11:04 AM ASA Class CLASS II- Mild systemic disease (i.e. well-controlled diabetes, hypertension, asthma, cigarette smoking) [facility] 11:05 HR=93 bpm, WAGH=857/96 mmhg, SpO2=97.0 %, Resp=16 B/min, EtCO2=32 mmHg, Comment=nsr : Time out performed according to hospital policy [facility]: Time: : 0.5 ml Lidocaine 2% to right radial Subcutaneous Given by Parth Andrews MD, [facility] :08 AM Access obtained by percutaneous puncture. 6Fr 10cm Terumo Glidesheath sheath placed in right Radial artery. [id number] [facility] :09 AM Time: 11:09 Patient given 2,000 units Heparin, 200 mcg Nitroglycerin, and 2.5 mg Verapamil Intraarterial by Parth Andrews MD, [facility]. This is given to reduce risk of vessel spasm and thrombosis. [facility] 11:09 AM 0.035 260cm Navilyst 3mmJ wire [id number] [facility] 11:09 AM 5Fr TIG catheter inserted over the wire [facility] 11:10 AM wire removed [facility] 11:10 AM UJ=229 bpm, JEDE=105/99 mmhg, SpO2=94.0 %, Resp=18 B/min, EtCO2=30 mmHg, Comment=nsr 11:11 AM LCA angiography performed in multiple views. [facility] :11 Recorded Pressure: Ao, WQ=690, Condition=Condition 1 (Aorta) Ao 150/133/142 11:11 AM Pressure channel 1 zeroed. 11:13 AM Lesion found in Proximal Circumflex. Pre Stenosis: 20 Pre ROBBIE Flow: [facility] 11:13 AM Lesion found in 1st Marginal. Pre Stenosis: 30 Pre ROBBIE Flow: [facility] 11:13 AM Circumflex, Obtuse Marginal, Left Posterior Descending, and Left Posterolateral Coronary Arteries with 30 % stenosis. If graft is supplying this area, 0 % stenosis [facility] :15 AM Lesion found in Proximal LAD. Pre Stenosis: 60 Pre ROBBIE Flow: 3: Complete and Brisk Flow/Perfusion tsoummers 11:15 AM Proximal Left Anterior Descending Coronary Artery with 60% stenosis. If graft is supplying this territory, 0 % stenosis. tsoummers 11:16 AM HR=97 bpm, FAKQ=589/82 mmhg, SpO2=96.0 %, Resp=21 B/min, EtCO2=35 mmHg, Comment=nsr 11:16 AM RCA angiography performed in multiple views. tsoummers 11:16 AM Time: : Patient comfortable and pain free: Yes tsoummers 11:16 AM Time: :LOC: 4 = Oriented but drowsy tsoummers 11:16 AM Recorded Pressure: Ao, HR=99, Condition=Condition 1 (Aorta) Ao 90/67/78 11:17 AM Catheter removed tsoummers 11:17 AM 5Fr Pigtail catheter inserted over the wire DNC tsoummers 11:17 AM Catheter selectively placed in left ventricle tsoummers 11:18 AM Lesion found in Mid RCA. Pre Stenosis: 50 Pre ROBBIE Flow: 3 tsoummers 11:18 AM Recorded Pressure: LV, HR=91, Condition=Condition 1 (Left Ventricle) LV 156/8/22 11:19 AM Bolus angiogram of left Ventricle complete: 10 ml/sec for a total of 20 mls tsoummers 11:19 AM Recorded Pressure: LV, Ao, HR=96, Condition=Condition 1 (Left Ventricle) LV 146/44/52, (Aorta) Ao 147/97/122 11:20 AM Catheter removed [facility] 11:20 AM HR=92 bpm, KVWG=822/91 mmhg, SpO2=94.0 %, Resp=29 B/min, EtCO2=36 mmHg, Comment=nsr 11:21 AM Right Coronary, Right Posterior Descending Arteries with Right Posterolateral and Acute Marginal branches with 50 % stenosis. If graft is supplying this area, 0 % stenosis tsoummers 11:21 AM 5Fr RBL 3.5 Convey guide catheter was used to cannulate the PCI vessel successfully. reused? No tsoummers : AM .014 Dobson 190cm guide wire across target lesion- successful. reused? No tsoummers : AM Time: Nitroglycerin 200 mcg Intracoronary Given by Parth Andrews MDlennox 11:23 AM At 11:23 the ACT was 199 seconds. [facility] 11:23 AM Time: 11:23 Heparin 2500 units Intravenous Given by Navid Garcia RN 11:25 AM Time: 11:25 90mg Adenosine in 90 ml 0.9 NS 982 ml/hr Intravenous Given by Navid Garcia RN [place] [facility] 11:25 AM Recorded Pressure: Ao, HR=96, Condition=Condition 1 (Aorta) Ao 113/90/102 11:25 AM Asist FFR Catheter advanced to target lesion. [facility] 11:26 AM LY=067 bpm, DFLT=560/67 mmhg, SpO2=96.0 %, Resp=18 B/min, EtCO2=33 mmHg, Comment=nsr 11:27 AM Adenosine stopped at this time [facility] 11:27 AM FFR Measurement: 0.80 [facility] 11:29 AM Flow Wire/Catheter removed intact [facility] 11:30 AM 3.0mm x 17mm EluNIR drug-eluting stent across target lesion- successful Lot #[id number] [facility] 11:30 AM HR=94 bpm, LMCS=230/88 mmhg, SpO2=95.0 %, Resp=15 B/min, EtCO2=36 mmHg, Comment=nsr 11:31 AM Time: 11:16 Patient comfortable and pain free: Yes [facility] 11:31 AM Time: 11:16LOC: 3 = Answers simple questions/follows commands [facility] 11:31 AM Time: 11:31 Aggrastat Bolus: 58 ml Intravenous Given by Navid Garcia RN [place] [facility] 11:31 AM Time: 11:31 Aggrastat 12.5mg/250ml 21 ml/hr Intravenous Given by Navid Garcia RN [place] [facility] 11:32 AM Stent deployed @ 14 skye for 30 seconds [facility] 11:33 AM Stent delivery system removed intact. [facility] 11:34 AM Guide wire removed intact. [facility] 11:35 AM Guide catheter removed intact. [facility] 11:35 AM Procedure completed at 11:35 04/19/2018[facility] 11:36 AM HR=85 bpm, GGFE=189/104 mmhg, SpO2=96.0 %, Resp=13 B/min 11:37 AM Time: 11:37 Brilinta 180 mg Orally Given by Navid Garcia RN [facility] 11:38 AM Did you address ROBBIE flow and Dominance? Yes tsmmers 11:38 AM Sign out completed: Radiation Dose 709.74 mGy, 6020.03 cGy/cm2 Fluoro Time: 6.1 Isovue 370 - 200ml contrast 135 ml given by Parth Andrews MD, [facility]. Complications: NoneCardiac Rehab Consult needed: YesConfirmed administered medications: Yes oummers 11:38 AM Isovue 370 - 200ml,2 Bottle(s) used. tsoummers 11:38 AM Arterial sheath pulled, Vasc Band closure device used and was Successful S/N. tsoummers 11:38 AM 11 ml air in Vasc Band. tsoummers 11:39 AM Estimated Blood Loss: less than 50cc tsoummers 11:39 AM Post ECG NSR tsoummers 11:39 AM Post Blood Pressure 183/104 tsoummers 11:39 AM 11:39 Post Pulses Rt Radial 1+ tsoummers 11:39 AM Information taught Cardiac Cath, PCI, IVUS/Flowire, and Vasc Band tsoummers 11:39 AM Education needs Plan of Care, Procedure, Disease Process, and Responsibilities of Patient in Care tsoummers 11:39 AM Learning barriers :None tsmmers 11:39 AM Education Methods Verbal [facility] 11:39 AM Education evaluation Able to repeat information [facility] 11:39 AM Site status No bleeding/hematoma - Rt Wrist as reported by Kaur Barragan RT (R) at 11:39 tsoummers 11:39 AM Plavix, Effient or Brilinta given Yes tsoummers 11:39 AM Delay to floor No tsoummers 11:40 AM Family placed in consult room. tsoummers 11:40 AM Complications: None [email or web address] 11:43 AM Report given to Sandhya BONE Pt taken to Holding room Room #4. 11:42 tsoummlennox 11:45 AM Report given to Yanet BONE Pt taken to 3B Room #46. 11:45 tsoummers 11:45 AM Patient out of room: 11:45 thiagommers 12:18 PM blood pressure cuff move from LLE to DARNELL. BP LLE 194/108. BP DARNELL 151/105 mprater 12:32 PM patient transfered to [facility] mprater Complications Complication None Hemodynamics Pressures Site Systolic/A Wave Diastolic/V Wave Mean AO 150 133 142 AO 90 67 78 LV 156 8 22 LV 146 44 52 AO 147 97 122 AO 113 90 102 Post Procedure Information Blood Pressure: 183/104 mmHg Rhythm: NSR Post procedural instructions were given Closure Device Time Device Success/Fail 04/19/2018 11:38:00 AM Mechanical Compression Successful Site Checks Time Location Status Staff Sheath In? Note 11:39 AM Rt Wrist No bleeding/hematoma Kaur Barragan RT (R) 11:45 AM Rt Wrist No bleeding/ No Hematoma Kaur Barragan RT (R) 12:00 PM Rt Wrist No bleeding/ No Hematoma Kaur Barragan RT (R) 12:30 PM Rt Wrist No bleeding/ No Hematoma Terra Riley RN right vasc band in place Pulses Time Site Pre-Procedure Post-Procedure Note Bilateral DP & PT 2+ 11:39:00 AM Rt Radial 1+ 04/19/2018 12:30:00 PM Rt Radial 1+ Updated by Terra Riley RN on 04/19/2018 12:34:13 PM Terra Riley RN electronically signed on 04/19/2018 12:34:47 PM with status of Final
--- NOTE | 2018-04-19 15:03 | Internal Med Progress Note ---
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 - Exam Vitals: Temp Pulse Resp BP Pulse Ox 98.1 F 88 16 147/98 95 04/19/18 13:54 04/19/18 14:15 04/19/18 14:15 04/19/18 14:15 04/19/18 14:15 Exam: PHYSICAL EXAMINATION: GENERAL APPEARANCE: The patient is alert, oriented and in no acute distress. HEENT: Head is normocephalic. The sinuses are nontender. Pupils are equal and reactive. The nares are patent. Oropharynx clear without lesions. NECK: Supple without lymphadenopathy. HEART: Regular rate and rhythm. LUNGS: No crackles or wheezes are heard. ABDOMEN: Soft, nontender, nondistended with good bowel sounds heard. Inguinal area is normal. EXTREMITIES: Without cyanosis, clubbing or edema. NEUROLOGICAL: Gross nonfocal. SKIN: Warm and dry without any rash. - Assessment and Plan (1) Chest pain Current Visit: Yes Status: Acute Assessment and Plan: 43-year-old male presented with chest pain, status post cardiac catheter with stent placement. Patient currently on aspirin and Brilinta. Cardiac risk factors including hypertension, hyperlipidemia, sedentary lifestyle. CV risk factor modification/reduction discussed with patient and in detail. Metoprolol and lisinopril was started due to high BP, atorvastatin was started per current guidelines. Echocardiogram revealed 60% EF, mild LVDD. (2) HTN (hypertension) Current Visit: Yes Status: Chronic Assessment and Plan: has history of hypertension, currently not on any BP medications, BP was elevated after cardiac catheter, given ACS/CAD, we will start patient on metoprolol and lisinopril. (3) HLD (hyperlipidemia) Current Visit: Yes Status: Chronic Assessment and Plan: Started patient on atorvastatin 40 mg daily. (4) Essential tremor Current Visit: Yes Status: Chronic Assessment and Plan: Hx of essential tremors. Pt. reports previously taking topamax and wellbutrin. States that medications were stopped. Monitor closely and will resume if warranted. (5) DVT prophylaxis Current Visit: Yes Status: Acute Assessment and Plan: SCDs. (6) SOB (shortness of breath) Current Visit: Yes Status: Resolved (7) Chronic pain in left shoulder Current Visit: Yes Status: Resolved - Time Spent with Patient Total time spent is greater than 50% in coordination of care (as documented) at patient's floor/unit and/or counseling patient: Greater than 35 minutes Plan of Care Discussed with: patient Internal Medicine: Result - Labs CBC & Chem 7: 04/19/18 03:43 04/19/18 03:43 Labs: Short CBC 04/19/18 Range/Units 03:43 WBC 9.0 (4.3-11.1) K/mcL Hgb 15.7 (12.9-16.9) g/dL Hct 44.9 (37.5-50.1) % Plt Count 331 (140-400) K/mcL Neutrophils # 5.1 (1.6-8.9) K/mcL BMP 04/19/18 03:43 Sodium 137 Potassium 3.9 Chloride 106 Carbon Dioxide 23 BUN 12 Creatinine 0.96 Glucose 120 H Calcium 8.9 Cardiac Enzymes 04/18/18 04/18/18 04/19/18 Range/Units 14:33 20:27 03:43 Troponin I < 0.03 < 0.03 < 0.03 (< 0.04) ng/mL Liver Function 04/19/18 Range/Units 03:43 Total Bilirubin 0.6 (0.3-1.0) mg/dL AST 17 (13-39) Units/L ALT 24 (7-52) Units/L Alkaline Phosphatase 45 (34-104) Units/L Albumin 3.8 (3.5-5.7) g/dL - ABG Interpretation ABG results: PT/INR, D-dimer PT 11.7 Seconds (9.4-12.1) 04/18/18 13:42 D-Dimer 385 ng/mLFEU (0-500) 04/18/18 13:42 - Impressions Impressions Echocardiogram 04/18/18 12:52 Impressions: LVEF 60%. Mild left ventricular diastolic dysfunction. Definity echo contrast was used. Normal right ventricular structure and function. No significant valvular dysfunction. No pulmonary hypertension. Left Ventricular Wall Motion: Rest Echo Findings All wall segments showed normal motion. Findings: Study Quality * Technically challenging due to body habitus. ECG Findings * Normal sinus rhythm. Left Ventricle * LVEF 60%. * Normal LV chamber size, wall thickness and function. * Mild left ventricular diastolic dysfunction. * There is no LV thrombus. * Definity echo contrast was used. Right Ventricle * Normal right ventricular structure and function. Left Atrium * Normal left atrial size. Right Atrium * Normal right atrial size. Aortic Valve * No aortic regurgitation. * Aortic valve not well visualized. * No aortic stenosis. Mitral Valve * No mitral regurgitation. * Normal mitral valve structure. * No mitral stenosis. Tricuspid Valve * Tricuspid valve not well visualized. * No tricuspid regurgitation. Pulmonic Valve * Pulmonic valve is not well visualized. * No pulmonic stenosis. * No pulmonic regurgitation. Pulmonary Artery * Pulmonary artery not well visualized. Aorta * Normally sized aortic root. Pericardium * There is no pericardial effusion present. Interatrial Septum * Interatrial septum not well evaluated. IVC * The IVC is not well evaluated. Consult Discharge Plan - Plan Referrals: Letha Thorne, [employer] INFORMATION CLERK [Primary Care Provider] - (1) Chest pain Qualifiers: Chest pain type: precordial pain Qualified Code(s): R07.2 - Precordial pain (2) HTN (hypertension) Qualifiers: Hypertension type: essential hypertension Qualified Code(s): I10 - Essential (primary) hypertension (3) HLD (hyperlipidemia) Qualifiers: Hyperlipidemia type: pure hypercholesterolemia Qualified Code(s): E78.00 - Pure hypercholesterolemia, unspecified; E78.0 - Pure hypercholesterolemia
[2018-04-19] MEDS: *HR* Ticagrelor 90 MG TABLET PO SCH (21:17)
[2018-04-20 06:38] LABS: Basophils # 0.1 K/mcL (0.0-0.2); Basophils % 0.6 %; Eosinophils # 0.4 K/mcL (0.0-0.6); Eosinophils % 4.4 %; Hematocrit 48.7 % (37.5-50.1); Hemoglobin 16.8 g/dL (12.9-16.9); Immature Granulocytes % 0.2 % (0-4); Lymphocytes # 2.4 K/mcL (0.6-4.6); Lymphocytes % 23.7 %; Mean Corpuscular HGB Conc 34.5 g/dL (31.6-35.5); Mean Corpuscular Hemoglobin 27.6 pg (28.0-33.3); Monocytes # 0.8 K/mcL (0.0-1.3); Monocytes % 8.3 %; Neutrophils # 6.3 K/mcL (1.6-8.9); Platelet Count 361 K/mcL (140-400); Red Blood Count 6.09 M/mcL (4.19-5.50); Red Cell Distribution Width 13.4 % (11.5-14.5); Segmented Neutrophils % 62.8 %
[2018-04-20 06:59] LABS: Alanine Aminotransferase 25 Units/L (7-52); Albumin 4.2 g/dL (3.5-5.7); Albumin/Globulin Ratio 1.4 (1.1-2.2); Alkaline Phosphatase 46 Units/L (34-104); Aspartate Amino Transferase 20 Units/L (13-39); BUN/Creatinine Ratio 13 (6-26); Blood Urea Nitrogen 12 mg/dL (6-20); Calcium 9.5 mg/dL (8.6-10.3); Carbon Dioxide 20 mEq/L (23-29); Chloride 106 mEq/L (98-107); Globulin 3.1 g/dL (2.4-3.5); Glucose 123 mg/dL (70-105); Osmolality,Calculated 281 (280-300); Potassium 4.2 mEq/L (3.5-5.1); Sodium 135 mEq/L (136-145); Total Protein 7.3 g/dL (6.4-8.9); eGFR For Non-African Americans > 60 (> 60)
[2018-04-20 07:17] VITALS: BP 152/85
--- NOTE | 2018-04-20 08:06 | Cardiology Progress Note ---
Date of Encounter: 04/20/18 Time of Encounter: 07:00 Assessment and Plan (1) Chest pain Current Visit: Yes Status: Acute Patient presents with constant chest pain since Wednesday--left sided with radiation to left neck. No acute ECG changes noted. Initial troponin negative. Reports improvement in symptoms with NTG tabs. Troponin negative x3. Due to ongoing chest discomfort, he was recommended to undergo LHC. LHC 04/19/2018: s/p successful PTCA/DIANA to pLAD (FFR 0.80), EF 65%; existing moderate RCA disease, medical therapy recommended. Remains CP free overnight, no issues with right radial cath site. Discussed the importance of uninterrupted DAPT (asa + brilinta) for a minimum of 1 year; otherwise continue statin, BB. Cardiac rehab consult. Follow-up with [facility] in 2-3 weeks, will coordinate appt. No further inpatient recommendations, will sign-off. Qualifiers: Chest pain type: chest pain due to myocardial ischemia Ischemic chest pain type: unstable angina pectoris Qualified Code(s): I20.0 - Unstable angina Discussion w patient/family: The assessment and plan as outlined above was discussed with the patient and/or family members who expressed understanding and agreement. All questions were answered. Thank you for involving us in the care of your patient. Please call with any questions. The patient will be discussed and reviewed with Dr. Youssef; changes to be made accordingly. Subjective Principal diagnosis: Unstable angina Interval history: Seen and examined. No complaints upon exam. Reports chest pain free since ~10 PM last night. No issues with right radial cath site. Objective Vital Signs, Last 4 Hours Temp Pulse Resp BP Pulse Ox 04/20/18 07:16 98.1 F 72 15 152/85 95 General: Conversant, No Apparent Distress HEENT: Atraumatic, Normocephaly, Mucus Membranes Moist Neck: No JVD, Normal carotid pulses Cardiac: Reg Rate and Rhythm, Normal S1 and S2, No Murmur Lungs: Normal Breath Sounds, No Wheeze, Rales, Rhonchi Neuro: Alert and responsive, No focal deficits noted Abdomen: Soft, Non-Tender Skin: No rashes noted on visualized skin Musculoskeletal: No Chest Wall Tenderness Extremities: No Clubbing, No Cyanosis, No Edema, Normal Pulses Other: right radial cath site: +2 pulses, brisk cap refill. No hematoma or ecchymosis noted at site. Results 04/20/18 06:05 04/20/18 06:05 Lab Results 04/20/18 04/20/18 06:05 06:05 WBC 10.1 Hgb 16.8 Hct 48.7 Plt Count 361 Sodium 135 L Potassium 4.2 Chloride 106 Carbon Dioxide 20 L BUN 12 Creatinine 0.93 Glucose 123 H Calcium 9.5 Total Bilirubin 1.0 AST 20 ALT 25 Alkaline Phosphatase 46 Active Medications Acetaminophen (Tylenol) 650 mg PO Q6HR PRN PRN Reason: Mild Pain/Fever Stop: 10/18/18 12:59 Last Admin: 04/18/18 15:59 Dose: 650 mg Aspirin (Aspirin) 81 mg PO DAILY [facility] Stop: 10/20/18 09:01 Atorvastatin Calcium (Lipitor) 40 mg PO HS [facility] Stop: 10/19/18 21:01 Last Admin: 04/19/18 21:17 Dose: 40 mg Doxepin HCl (Sinequan) 25 mg PO HS [facility] Stop: 10/20/18 21:01 Last Admin: 04/19/18 23:07 Dose: 25 mg Doxepin HCl (Sinequan) 25 mg PO HS [facility] Stop: 10/19/18 22:57 Last Admin: 04/19/18 23:09 Dose: 25 mg Lisinopril (Zestril) 5 mg PO DAILY [facility] PRN Reason: Protocol Stop: 10/20/18 09:01 Metoprolol Tartrate (Lopressor) 25 mg PO BID [facility] Stop: 10/19/18 21:01 Last Admin: 04/19/18 21:17 Dose: 25 mg Naloxone HCl (Narcan) 0.4 mg IVP Q2MIN PRN PRN Reason: SEE COMMENTS Stop: 10/18/18 12:59 Nitroglycerin (Nitroglycerin) 0.4 mg SL Q5MIN PRN PRN Reason: Chest Pain Stop: 10/18/18 09:35 Last Admin: 04/18/18 09:40 Dose: 0.4 mg Ticagrelor (Brilinta) 90 mg PO BID [facility] Stop: 10/19/18 21:01 Last Admin: 04/19/18 21:17 Dose: 90 mg - Imaging and Cardiology Echo: report reviewed Cardiac cath: report reviewed Other Results: 12 hour tele: avg HR=70 SR. No events noted. - EKG Interpretation EKG results cardiology: personally reviewed Consult Discharge Plan - Plan Referrals: Letha Thorne, TA [Primary Care Provider] -
[2018-04-20] MEDS ORDERED: Aspirin 81 MG TAB.CHEW PO SCH (09:00)
[2018-04-20] MEDS: *HR* Ticagrelor 90 MG TABLET PO SCH (09:29)
--- NOTE | 2018-04-20 10:45 | Discharge Summary ---
- NOTES TO OUTPATIENT PROVIDER Notes to Outpatient Provider: f/u with PCP within a week. F/u with cardiology within 2-3 weeks. f/u with card rehab as outpateint. Orders not resulted at time of discharge: Pending orders 04/19/18 11:40 ECG 12 lead ECG [ECG] Stat 04/20/18 06:00 ECG 12 lead ECG [ECG] AM 0600 04/21/18 04:00 Complete Blood Count [HEME] AM 0400 Comprehensive Metabolic Panel AM 0400 04/22/18 04:00 Complete Blood Count [HEME] AM 0400 Comprehensive Metabolic Panel AM 0400 Date of Encounter: 04/20/18 Time of Encounter: 10:41 - Discharge Diagnosis (1) Chest pain Priority: Primary Status: Acute Assessment and Plan: 43-year-old male presented with chest pain, status post cardiac catheter with stent placement LAD. Patient currently on aspirin and Brilinta. Cardiac risk factors including hypertension, hyperlipidemia, sedentary lifestyle. CV risk factor modification/reduction discussed with patient and in detail. Metoprolol and lisinopril was started due to high BP, atorvastatin was started per current guidelines. Echocardiogram revealed 60% EF, mild LVDD. Qualifiers: Chest pain type: chest pain due to myocardial ischemia Ischemic chest pain type: unstable angina pectoris Qualified Code(s): I20.0 - Unstable angina (2) HTN (hypertension) Priority: Secondary Status: Chronic Assessment and Plan: has history of hypertension, currently not on any BP medications, BP was elevated after cardiac catheter, given ACS/CAD, started patient on metoprolol and lisinopril. Qualifiers: Hypertension type: essential hypertension Qualified Code(s): I10 - Essential (primary) hypertension (3) HLD (hyperlipidemia) Priority: Secondary Status: Chronic Qualifiers: Hyperlipidemia type: pure hypercholesterolemia Qualified Code(s): E78.00 - Pure hypercholesterolemia, unspecified; E78.0 - Pure hypercholesterolemia (4) Essential tremor Priority: Secondary Status: Chronic (5) DVT prophylaxis Priority: Primary Status: Acute (6) SOB (shortness of breath) Priority: Primary Status: Resolved (7) Chronic pain in left shoulder Priority: Secondary Status: Resolved Hospital course: Mr. Bennett is a 43 year old male with history of hypertension, hyperlipidemia, sedentary lifestyle presented with acute onset of chest pain. Patient underwent left heart catheterization on 04/19/2018, which revealed critical stenosis of LAD, patient received one DIANA. He was started on aspirin and Brilinta. His chest pain has resolved after the procedure. Patient was found having elevated blood pressure, he was started on metoprolol and lisinopril, patient BP was controlled. Patient will be discharged home today, he was instructed to take aspirin and Brilinta for at least 1 year per cardiology. He will follow up with cardiology within 2-3 weeks, follow up with primary care physician within one week. He also will follow up with cardiac rehabilitation as outpatient. Time spent discussing smoking cessation with patient: more than 10 minutes - Time Spent with Patient Total time spent providing and/or coordinating discharge services: Greater than 30 minutes - Discharge Medications Prescriptions: Nitroglycerin 0.4 mg SL Q5MIN PRN #10 tab.subl PRN Reason: Chest Pain Aspirin 81 mg PO DAILY #30 tab.chew Atorvastatin [Lipitor] 40 mg PO HS #30 tablet Lisinopril [Zestril] 5 mg PO DAILY #30 tablet Metoprolol [Lopressor] 25 mg PO BID #60 tablet Ticagrelor [Brilinta] 90 mg PO BID #60 tablet Home Medications: Aspirin 81 mg PO DAILY #30 tab.chew 04/20/18 [Rx] Atorvastatin [Lipitor] 40 mg PO HS #30 tablet 04/20/18 [Rx] Lisinopril [Zestril] 5 mg PO DAILY #30 tablet 04/20/18 [Rx] Metoprolol [Lopressor] 25 mg PO BID #60 tablet 04/20/18 [Rx] Nitroglycerin 0.4 mg SL Q5MIN PRN #10 tab.subl 04/20/18 [Rx] Ticagrelor [Brilinta] 90 mg PO BID #60 tablet 04/20/18 [Rx] Allergies/Adverse Reactions: 3 Allergy/AdvReac Type Severity Reaction Status Date / Time acetaminophen [From Vicodin] Allergy Hallucinati Verified 04/18/18 11:41 ng hydrocodone [From Vicodin] Allergy Hallucinati Verified 04/18/18 11:41 ng Date of admission: 04/18/18 11:27 Primary care physician: Letha Thorne CNP Consults: 04/18/18 12:45 Consult to Cardiology [CONS] Routine Comment: Consulting Provider: [facility] [place] Reason for Consult: 43 yo male admitted d/t CP under left breast w/radiation to left neck and back that began one week ago and became much worse yesterday. Associated sx: SOB, diaphoresis. Describes pain as severe pressure. No recent cardiac w/u. Hx of GI bleed last year d/t NSAIDS for chronic left shoulder pain (surgeries x4). Was taken off all meds in the fall for HTN, HLD, essential tremor. Reports intermittent CP and tachy/pao since 20's. BP 153/104 on exam. D-dimer ordered to r/o PE. Echocardiogram ordered. NPO for now (pt. has not eaten today) in case LHC needed. Call Completed: Yes 04/18/18 13:00 Consult to Milling/Polishing Operator [CONS] Routine Reason for SW Consult: Please assess patient for possible home needs for post -discharge planning. 04/19/18 11:40 Consult to Cardiac Rehabilitation-Phase1 [CONS] Routine Comment: Reason for Consult: post op PCI Call Completed: Yes - Constitutional Vitals: Temp Pulse Resp BP Pulse Ox 98.1 F 72 15 152/85 95 04/20/18 07:16 04/20/18 07:16 04/20/18 07:16 04/20/18 07:16 04/20/18 07:16 General appearance: Present: cooperative, A&O X 3, pleasant, obese, severe distress (CP, SOB), answers questions appropriately Exam: PHYSICAL EXAMINATION: GENERAL APPEARANCE: The patient is alert, oriented and in no acute distress. HEENT: Head is normocephalic. The sinuses are nontender. Pupils are equal and reactive. The nares are patent. Oropharynx clear without lesions. NECK: Supple without lymphadenopathy. HEART: Regular rate and rhythm. LUNGS: No crackles or wheezes are heard. ABDOMEN: Soft, nontender, nondistended with good bowel sounds heard. Inguinal area is normal. EXTREMITIES: Without cyanosis, clubbing or edema. NEUROLOGICAL: Gross nonfocal. SKIN: Warm and dry without any rash. - Patient Status Disposition: Home, Self-Care Condition: Fair Functional capacity at discharge: independent ambulation Overall status at discharge: patient is progressing back to baseline - Discharge Instructions Follow Up With: Letha Thorne GUNSMITH APPRENTICE [Primary Care Provider] - - Diet and Activity Activity: increase activity as tolerated Diet: low fat, low cholesterol, low salt diet
== END 2018-04-20 12:00 | disposition home or self-care (01) ==
LOC: 3BNU 09:12 → EMEROOARM 09:12 → 3BNU 12:16
PROVIDERS: ADMIT Internal Medicine; ATTEND Internal Medicine